=== PATIENT | female | born 1970 | race Caucasian/White ===

== ENCOUNTER 2019-10-03 19:29 | Emergency (ER) | payer OTHER ==
[2019-10-03] MEDS ORDERED: NORMAL SALINE 1000 ML 1,000 ML IV ONE (20:10)
[2019-10-03] MEDS ORDERED: DIPHENHYDRAMINE HCL 50 MG/ML VIAL IV ONE (20:10)
[2019-10-03] MEDS ORDERED: PROCHLORPERAZINE EDISYLATE INJ 10 MG/2 ML VIAL IV ONE (20:12)
--- NOTE | 2019-10-03 20:15 | ER Document Report ---
ED Medical Screen (RME) - General Chief Complaint: Headache >24 hrs old Stated Complaint: POSS MIGRAINE Time Seen by Provider: 10/03/19 20:05 Mode of Arrival: Ambulatory Information source: Patient Notes: 49-year-old female with history of migraines visiting from [place] presents to the emergency department with a migraine. Reports she has had migraines since she was 15 years old. She reports they have decreased since she went through menopause. She reports this migraine has been for the past 2 days. She is taken Benadryl and Motrin without relief of symptoms. She reports some vom iting. Reports lights and noise sensitivity. She reports this is her typical migraine with pain behind her right eye,bilateral temporal area and numbness to the back of her head. Denies trauma. No other complaints such as fever diarrhea. Patient is alert and oriented no obvious neuro deficits noted. I have greeted and performed a rapid initial assessment of this patient. A comprehensive ED assessment and evaluation of the patient, analysis of test results and completion of the medical decision making process will be conducted by additional ED providers. TRAVEL OUTSIDE OF THE [place] IN LAST 30 DAYS: No - Related Data Allergies/Adverse Reactions: Penicillins Allergy (Verified 10/03/19 20:06) Sulfa (Sulfonamide Antibiotics) Allergy (Verified 10/03/19 20:06) [id number] Antimigraine Agents Allergy (Verified 10/03/19 20:06) ziprasidone [From Geodon] Allergy (Verified 10/03/19 20:06) Past Medical History - Social History Frequency of alcohol use: 1-2/day Drug Abuse: None Physical Exam - Vital signs Vitals: Temp Pulse Resp BP Pulse Ox 98.4 F 71 20 143/71 H 97 10/03/19 19:36 10/03/19 19:36 10/03/19 19:36 10/03/19 19:36 10/03/19 19:36 Course - Vital Signs Vital signs: Temp Pulse Resp BP Pulse Ox 98.4 F 71 20 143/71 H 97 10/03/19 19:36 10/03/19 19:36 10/03/19 19:36 10/03/19 19:36 10/03/19 19:36
--- NOTE | 2019-10-03 21:55 | ER Document Report ---
ED Headache - General Chief Complaint: Headache >24 hrs old Stated Complaint: POSS MIGRAINE Time Seen by Provider: 10/03/19 20:05 Mode of Arrival: Ambulatory Notes: Patient is a 49-year-old female who comes emergency department for chief complaint of a migraine headache. She states that she has a long history of migraines, she has a throbbing headache behind her right eye with light sensitivity, nausea, and she vomited a couple of times. She denies fever, head injury, neck pain. She states she used to follow-up with a neurologist and has had imaging of her brain, she states that after menopause she started having much fewer migraines so she does not take anything for it now at home. She states this is typical for her migraine and is not worse than her previous headaches. TRAVEL OUTSIDE OF THE [place] IN LAST 30 DAYS: No - Related Data Allergies/Adverse Reactions: Penicillins Allergy (Verified 10/03/19 20:06) Sulfa (Sulfonamide Antibiotics) Allergy (Verified 10/03/19 20:06) [id number] Antimigraine Agents Allergy (Verified 10/03/19 20:06) ziprasidone [From Geodon] Allergy (Verified 10/03/19 20:06) Past Medical History - General Information source: Patient - Social History Smoking Status: Former Smoker Frequency of alcohol use: 1-2/day Drug Abuse: None Lives with: Family Family History: Reviewed & Not Pertinent Patient has suicidal ideation: No Patient has homicidal ideation: No Neurological Medical History: Reports: Hx Migraine - Immunizations Hx Diphtheria, Pertussis, Tetanus Vaccination: Yes Review of Systems - Review of Systems Constitutional: No symptoms reported EENT: No symptoms reported Cardiovascular: No symptoms reported Respiratory: No symptoms reported Gastrointestinal: See HPI Genitourinary: No symptoms reported Female Genitourinary: No symptoms reported Musculoskeletal: No symptoms reported Skin: No symptoms reported Hematologic/Lymphatic: No symptoms reported Neurological/Psychological: See HPI Physical Exam - Vital signs Vitals: Temp Pulse Resp BP Pulse Ox 98.4 F 71 20 143/71 H 97 10/03/19 19:36 10/03/19 19:36 10/03/19 19:36 10/03/19 19:36 10/03/19 19:36 - Notes Notes: GENERAL: Sleeping and easily aroused HEAD: Normocephalic, atraumatic. EYES: Pupils equal, round, and reactive to light. Extraocular movements intact. ENT: Oral mucosa moist, tongue midline. Oropharynx unremarkable. Airway patent. LUNGS: Clear to auscultation bilaterally, no wheezes, rales, or rhonchi. No respiratory distress. HEART: Regular rate and rhythm. No murmur ABDOMEN: Soft, non-tender. Non-distended. EXTREMITIES: Moves all 4 extremities spontaneously. No edema, normal radial and dorsalis pedis pulses bilaterally. No cyanosis. BACK: no cervical, thoracic, lumbar midline tenderness. No saddle anesthesia, normal distal neurovascular exam. Moves all extremities in full range of motion. NEUROLOGICAL: Alert and oriented x3. Normal speech. Cranial nerves II through XII grossly intact. PSYCH: Normal affect, normal mood. SKIN: Warm, dry, normal turgor. No rashes or lesions noted. Course - Re-evaluation Re-evalutation: Patient well-appearing, no signs of distress, has no neurological deficits, headache was not maximal at onset, headache is typical and classic for the patient. On my evaluation patient's headache is almost completely resolved after treatments from triage, giving Toradol and reevaluating. On reevaluation headache is gone. Based on her resolution and presentation I have very low suspicion of intracranial hemorrhage. Discussed follow-up, discu ssed return precautions. Patient states appreciation and agreement. Stable and well-appearing at time of discharge. - Vital Signs Vital signs: Temp Pulse Resp BP Pulse Ox 98.1 F 52 L 18 109/57 L 96 10/03/19 23:21 10/03/19 23:21 10/03/19 23:21 10/03/19 23:21 10/03/19 23:21 Discharge - Discharge Clinical Impression: Headache Qualifiers: Headache type: unspecified Headache chronicity pattern: acute headache Intractability: not intractable Qualified Code(s): R51 - Headache Condition: Stable Disposition: HOME, SELF-CARE Additional Instructions: Your evaluation, symptoms, and resolution with treatment are very suggestive of a migraine. You can take the prescribed medication if needed for headaches in the future. Follow-up with primary care for additional evaluation and management of migraines. Return if you worsen including returned or severe headache, vomiting, fever, or any other concerning or worsening symptoms. Prescriptions: Butalb/Acetaminophen/Caffeine [Fioricet (50-325-40 mg) Tablet] 1 tab PO Q4HP PRN #20 tab PRN Reason: Forms: Return to Work
[2019-10-03] MEDS ORDERED: KETOROLAC TROMETHAMINE INJ/PF 30 MG/1 ML SDV IV ONE (22:03)
[2019-10-03 23:23] VITALS: BP 109/57
== END 2019-10-04 01:40 | disposition home or self-care (01) ==
LOC: ER 19:29
DX: R51 Headache (principal); R11.2 Nausea with vomiting, unspecified; H53.149 Visual discomfort, unspecified; Z86.69 Personal history of other diseases of the nervous system and sense organs; Z87.891 Personal history of nicotine dependence; Z88.0 Allergy status to penicillin; Z88.2 Allergy status to sulfonamides
CPT/HCPCS: 99283; 96361; 96374; 96375; J1200; J1885; J0780; J7030